=== PATIENT | female | born 1945 | race Caucasian/White ===

== ENCOUNTER → 2017-03-09 | Outpatient (CLI) | payer MEDICARE, BC ==
[~2017-03-09] MED LIST: AMOXICILLIN 8751 TAB PO; CALCIUM 500500 M2 PO; CARDI-OMEGA1000 MG PO; CRESTOR 10MG10 MG PO; LEXAPRO 10MG10 MG PO; MULTIPLE VITAMI1 CTB PO; VITAMIN B1225 MCG PO; VITAMIN C500 MG PO; [UNRECOGNIZED DRUG - OTHER] PO
== END ==
LOC: MC.RAD 16:34
DX: Z12.31 Encounter for screening mammogram for malignant neoplasm of breast (principal)

== ENCOUNTER 2018-11-01 08:09 | Day surgery (SDC) | payer MEDICARE, BC ==
[~2018-11-01] VITALS: Ht 165.1 cm; Wt 76.2 kg
[~2018-11-01 08:09] MED LIST changes: -CALCIUM 500500 M2 PO; +CALCIUM CARBON650 M2 PO
[2018-11-01] MEDS ORDERED: CRESTOR20 MG PO (08:47)
[2018-11-01] MEDS ORDERED: ASPIRIN 32325 MG/TAB PO (08:47)
[2018-11-01] MEDS ORDERED: LEXAPRO 10MG10 MG PO (08:51)
[2018-11-01] MEDS ORDERED: NITROSTAT0.4 MG/TAB SL (08:52)
[2018-11-01] MEDS ORDERED: CINNAMON500 MG PO (08:53)
[2018-11-01] MEDS ORDERED: OMEGA-3 1000 MG1 CAP PO (08:53)
[2018-11-01] MEDS ORDERED: LEVSIN0.125 M1 PO (08:54)
[2018-11-01 09:04] VITALS: BP 139/90; PULSE 73; TEMP 97
[2018-11-01 10:45] VITALS: BP 125/66; PULSE 64; TEMP 97.3
--- NOTE | 2018-11-01 10:45 | NUR ---
Pt to [facility] via cart from [email or web address]. Pt awake and alert. Pt ambulates to recliner with stand by assistance. in room. Juice, sprite and crackers given per pt request. Pt denies pain or nausea. Will continue to monitor. Call light within reach.
[2018-11-01 11:00] VITALS: BP 120/71; PULSE 64
--- NOTE | 2018-11-01 11:00 | NUR ---
Pt tolerating food and fluids without difficulties. Will continue to monitor. Call light within reach.
[2018-11-01 11:15] VITALS: BP 114/66; PULSE 65
--- NOTE | 2018-11-01 11:15 | NUR ---
Pt continues to rest. Denies needs. Call light within reach.
[2018-11-01 11:30] VITALS: BP 104/66; PULSE 57
--- NOTE | 2018-11-01 11:30 | NUR ---
Pt continues to rest. Denies needs. Call light within reach.
--- NOTE | 2018-11-01 11:45 | NUR ---
Discharge instructions reviewed. Pt voices understanding. IV site discontinued with all parts intact. Pt up to dress. Call light within reach.
--- NOTE | 2018-11-01 12:00 | NUR ---
Pt escorted to private car via wheel chair. Pt accompanied home by her .
[2018-11-01 17:36] VITALS: BP 124/74; PULSE 64
== END 2018-11-01 12:00 | disposition home or self-care (01) ==
LOC: SDCO 08:09
DX: Z12.11 Encounter for screening for malignant neoplasm of colon (principal); Z86.010 Personal history of colon polyps; K64.0 First degree hemorrhoids; K57.30 Diverticulosis of large intestine without perforation or abscess without bleeding; I25.10 Atherosclerotic heart disease of native coronary artery without angina pectoris; Z95.5 Presence of coronary angioplasty implant and graft; K58.9 Irritable bowel syndrome, unspecified; E78.00 Pure hypercholesterolemia, unspecified; Z85.828 Personal history of other malignant neoplasm of skin; Z96.651 Presence of right artificial knee joint; Z79.899 Other long term (current) drug therapy; Z79.82 Long term (current) use of aspirin
CPT/HCPCS: J2250; J2405; J3010; J7030

== ENCOUNTER → 2021-08-18 | Outpatient (CLI) | payer MEDICARE, BC ==
[~2021-08-18] MED LIST changes: +ASPIRIN 32325 MG/TAB PO; +CINNAMON500 MG PO; +CRESTOR20 MG PO; +LEVSIN0.125 M1 PO; +NITROSTAT0.4 MG/TAB SL; +OMEGA-3 1000 MG1 CAP PO
== END ==
LOC: MC.RAD 14:11
DX: Z12.31 Encounter for screening mammogram for malignant neoplasm of breast (principal); Z98.82 Breast implant status

== ENCOUNTER → 2023-11-22 | Outpatient (CLI) | payer MEDICARE, BC ==
[~2023-11-22] MED LIST changes: +GLUCOPHAGE500 MG/TAB PO; +MERIBIN5 MG PO; +MULTIPLE VITAMI1 CAP PO; -MULTIPLE VITAMI1 CTB PO
== END ==
LOC: MC.RAD 10:44
DX: N63.10 Unspecified lump in the right breast, unspecified quadrant (principal)

== ENCOUNTER → 2024-05-23 | Outpatient (CLI) | payer MEDICARE, BC | LOC: MC.RAD 13:47 | DX: N63.10 Unspecified lump in the right breast, unspecified quadrant (principal) ==